=== PATIENT | male | born 1935 | race Caucasian/White ===

== ENCOUNTER → 2019-09-20 | Outpatient (CLI) | payer MEDICARE, OTHER | END | disposition home or self-care (01) | LOC: RAH 09:10 | PROVIDERS: ATTEND Internal Medicine Gastroenterology | DX: K22.4 Dyskinesia of esophagus (principal); K44.9 Diaphragmatic hernia without obstruction or gangrene | CPT/HCPCS: 74240 ==

== ENCOUNTER → 2020-02-13 | Outpatient (CLI) | payer OTHER | END | disposition home or self-care (01) | LOC: RAH 15:34 | PROVIDERS: ATTEND Internal Medicine | DX: I10 Essential (primary) hypertension (principal) | CPT/HCPCS: 71045 ==

== ENCOUNTER → 2020-03-02 | Outpatient (CLI) | payer OTHER | LOC: RAH 09:29 | PROVIDERS: ATTEND Internal Medicine | DX: N28.1 Cyst of kidney, acquired (principal); N18.3 Chronic kidney disease, stage 3 (moderate) | CPT/HCPCS: 76770 ==

== ENCOUNTER → 2024-02-04 | Outpatient (CLI) | payer MEDICARE | END | disposition home or self-care (01) | LOC: SHCH 08:49 | PROVIDERS: ATTEND Internal Medicine Cardiovascular Disease | DX: R42 Dizziness and giddiness (principal); I20.0 Unstable angina; I11.9 Hypertensive heart disease without heart failure; N40.0 Benign prostatic hyperplasia without lower urinary tract symptoms; C61 Malignant neoplasm of prostate; I87.2 Venous insufficiency (chronic) (peripheral); R06.00 Dyspnea, unspecified; R53.83 Other fatigue; R55 Syncope and collapse; Z87.891 Personal history of nicotine dependence | CPT/HCPCS: 93306; 93880 ==

== ENCOUNTER 2025-06-05 07:48 | Observation (INO) | payer MEDICARE ==
[~2025-06-05] VITALS: Ht 182.9 cm; Wt 80.6 kg
--- NOTE | 2025-06-05 08:00 | EKG ---
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
[2025-06-05 08:26] LABS: IMMATURE GRANULOCYTE ABSOLUTE 0.03 K/uL (0-1); NUCLEATED RED BLOOD CELLS 0.0 % (0.0-0.19); PLATELET COUNT (AUTO) 262 K/uL (130-400); RED BLOOD CELL COUNT(AUTO) 4.04 MIL/uL (4.50-6.20); RED CELL DISTRIBUTION WIDTH 14.5 % (11.0-15.5); WHITE BLOOD COUNT (AUTO) 7.4 K/uL (4.8-10.8)
[2025-06-05 08:37] LABS: CREATININE 1.7 mg/dL (0.5-1.3); GLOMERULAR FILTR. RATE CALC 38.0 mL/min (>90); GLUCOSE,RANDOM 115.0 mg/dL (70-105); SODIUM SERUM 141.0 mmol/L (136-145); UREA NITROGEN, BLOOD 30.0 mg/dL (7-18)
[2025-06-05 08:38] LABS: APPEARANCE,URINE CLEAR (CLEAR); GLUCOSE, URINE (UA) NEGATIVE (NEGATIVE); LEUKOCYTE ESTERASE ,URINE NEGATIVE Leu/uL (NEGATIVE); NITRATE,URINE NEGATIVE (NEGATIVE); OCCULT BLOOD,URINE MODERATE (NEGATIVE)
--- NOTE | 2025-06-05 08:39 | HMCIMG ---
EXAM: CR Chest, 2 View. CLINICAL HISTORY: [facility] COMPARISON: None provided. FINDINGS: LUNGS: There is airspace opacity at the right lung base which is likely infectious in etiology. The lungs are otherwise clear. PLEURAL SPACES: No pleural effusion or pneumothorax. MEDIASTINUM: Cardiac size and mediastinal contours within normal limits. BONES: No acute osseous abnormality. IMPRESSION: There is airspace opacity at the right lung base which is likely infectious in etiology. /[place]
[2025-06-05 08:42] LABS: ASPARTATE AMINOTRANSFERASE 15.0 U/L (10-37); CREATINE KINASE, TOTAL 51.0 U/L (21-232); TOTAL PROTEIN, SERUM 7.3 g/dL (6.0-8.3)
[2025-06-05 08:44] LABS: ADD UA MICROSCOPIC YES
--- NOTE | 2025-06-05 09:22 | HMCIMG ---
EXAM: CT Head Without IV contrast. CLINICAL HISTORY: fall TECHNIQUE: Axial computed tomography images of the head/brain without intravenous contrast. COMPARISON: None provided. FINDINGS: BRAIN: No acute bleed or infarct. Chronic ischemic and atrophic changes. VENTRICLES: No hydrocephalus. ORBITS: The orbits are unremarkable. SINUSES AND MASTOIDS: The paranasal sinuses and mastoid air cells are clear. BONES: No fracture. SOFT TISSUES: Unremarkable. IMPRESSION: No acute bleed or infarct. Chronic ischemic and atrophic changes. /[place]
[2025-06-05] MEDS: ZOSYN 3.375GM +NS 50ML IV ONE (10:39)
--- NOTE | 2025-06-05 12:07 | ERN ---
ED Note History of Present Illness Stated Complaint: DIZZINESS Chief Complaint: Dizzy/Light Headed Time Seen by MD: 07:52 Dictation: 89-year-old male presenting to the emergency department with generalized weakness and dizziness also having shortness of breath these end-stage renal disease dialyzes Thursday, last dialyzed on Thursday. Has a history of anemia. Allergies: Coded Allergies: iodine (Unverified Allergy, Unknown, 06/05/25) naproxen (Unverified Allergy, Unknown, 06/05/25) oxycodone (Unverified Adverse Reaction, Unknown, 06/05/25) hallucinations Past Medical History Past Medical History: COPD, Hypotension Surgical History: Other Surgical History Other: HERNIA X 3 Review of System Dictation Constitutional: Negative for fever,chills, and weight loss Eyes: Negative for injury, pain,redness, and discharge ENT: Negative for injury,pain or swelling Cardiovascular: Negative for chest pain, palpitations, and edema Respiratory: per HPI Abdomen/GI: Negative for abdominal pain, nausea, vomiting, diarrhea, and constipation Back: Negative for injury and pain : Negative for injury, bleeding and discharge MS/Extremity: Negative for injury and deformity Skin: Negative for rash, and discoloration Neuro: Per HPI Initial Vital Sign VS Vital Signs Date Time Temp Pulse Resp B/P (MAP) Pulse Ox O2 Delivery O2 Flow Rate FiO2 06/05/25 07:49 88 16 172/70 100 Room Air 0 06/05/25 08:23 97.9 21 Physical Exam Dictation General: awake, alert, NAD Head/Face: Normocephalic, atraumatic Eyes: PERRL, EOMI, vision at baseline ENT: oral cavity clear, TMs clear, no signs of infection Neck: Trachea midline, supple, no nuchal rigidity Cardiovascular: RRR, normal S1/S2, No MRGs, no JVD Respiratory: CTAB, no respiratory distress, No rales or wheezes Abdomen: Soft, non-tender, non-distended, normal bowel sounds, no guarding or rebound. Skin: Warm, dry, normal turgor, no rash MS/Extremity: Pulses equal, no cyanosis, neurovascular intact, FROM Neuro: COAx4, GCS 15, strength 5/5, CN 2-12 intact, normal cerebellar exam, normal gait, Psych: Normal behavior, mood, and affect normal Results (Laboratory/Radiology) Laboratory/Radiology Laboratory Tests Test 06/05/25 08:15 06/05/25 08:24 White Blood Count 7.4 K/uL (4.8-10.8) Red Blood Count 4.04 MIL/uL (4.50-6.20) L Hemoglobin 11.6 g/dL (14.0-18.0) L Hematocrit 35.7 % (42-54) L Mean Corpuscular Volume 88.4 fL (79-99) Mean Corpuscular Hemoglobin 28.7 pg (27.0-33.0) Mean Corpuscular Hemoglobin Concent 32.5 g/dL (32.0-36.0) Red Cell Distribution Width 14.5 % (11.0-15.5) Platelet Count 262 K/uL (130-400) Mean Platelet Volume 9.7 fL (7.5-10.5) Immature Granulocyte % (Auto) 0.4 % (0-1) Neutrophils (%) (Auto) 60.5 % (40.0-77.0) Lymphocytes (%) (Auto) 17.0 % (21.0-51.0) L Monocytes (%) (Auto) 9.2 % (3.0-13.0) Eosinophils (%) (Auto) 12.5 % (0.0-8.0) H Basophils (%) (Auto) 0.4 % (0.0-5.0) Neutrophils # (Auto) 4.5 K/uL (1.8-7.7) Lymphocytes # (Auto) 1.3 K/uL (1.0-4.8) Monocytes # (Auto) 0.7 K/uL (0.1-1.0) Eosinophils # (Auto) 0.92 K/uL (0.00-0.70) H Basophils # (Auto) 0.03 K/uL (0.00-0.20) Absolute Immature Granulocyte (auto 0.03 K/uL (0-1) Nucleated Red Blood Cells 0.0 % (0.0-0.19) Sodium Level 141 mmol/L (136-145) Potassium Level 4.2 mmol/L (3.5-5.1) Chloride Level 103 mmol/L (101-111) Carbon Dioxide Level 25 mmol/L (21-32) Blood Urea Nitrogen 30 mg/dL (7-18) H Creatinine 1.7 mg/dL (0.5-1.3) H Glomerular Filtration Rate Calc 38 mL/min (>90) Random Glucose 115 mg/dL (70-105) H Lactic Acid Level 1.8 mmol/L (0.8-2.5) Total Calcium 9.4 mg/dL (8.5-10.1) Total Bilirubin 1.4 mg/dL (0.2-1.0) H Direct Bilirubin 0.3 mg/dL (0.0-0.3) Aspartate Amino Transf (AST/SGOT) 15 U/L (10-37) Alanine Aminotransferase (ALT/SGPT) 19 U/L (12-78) Alkaline Phosphatase 100 U/L (50-136) Total Creatine Kinase 51 U/L (21-232) Troponin I High Sensitivity 13 ng/L (4-75) Total Protein 7.3 g/dL (6.0-8.3) Albumin 3.6 g/dL (3.5-5.0) Urine Color LIGHT-YELLOW (YELLOW) Urine Appearance CLEAR (CLEAR) Urine pH 7.5 (5.0-8.0) Urine Specific [place] 1.009 (1.001-1.031) Urine Protein NEGATIVE mg/dL (NEGATIVE) Urine Glucose (UA) NEGATIVE mg/dL (NEGATIVE) Urine Ketones NEGATIVE mg/dL (NEGATIVE) Urine Occult Blood MODERATE (NEGATIVE) H Urine Nitrate NEGATIVE (NEGATIVE) Urine Bilirubin NEGATIVE mg/dL (NEGATIVE) Urine Urobilinogen 0.2 mg/dL (0.2-1.0) Urine Leukocyte Esterase NEGATIVE Shayne/uL Urine RBC 26-50 /HPF (0-1) H Urine WBC 2-5 /HPF (0-1) H Urine Bacteria None Seen /HPF (None Seen) Labs Reviewed?: Yes EKG Comment: HR 74, NSR, normal intervals, no STEMI ED Course ED Course Orders Procedure Category Date Status Time 12 Lead Ekg Tracing- EKG 06/05/25 Complete Technical 07:52 Blood Cult GURDEEP 06/05/25 In Process 07:52 Basic Metabolic Panel LAB 06/05/25 Complete 07:52 Cbc With Differential LAB 06/05/25 Complete 07:52 Hepatic Function Panel LAB 06/05/25 Complete 07:52 Creatine Kinase, Total LAB 06/05/25 Complete 07:52 Lactic Acid LAB 06/05/25 Complete 07:52 Troponin I High LAB 06/05/25 Complete Sensitivity 07:52 Urinalysis Profile LAB 06/05/25 Complete 07:52 Chest 1vw RAD 06/05/25 Resulted 07:52 Ct Head/Brain W/O CT 06/05/25 Resulted Contrast 07:52 Zosyn 3.375gm+Ns 50ml PHA 06/05/25 Complete (Zosyn 3.375gm+Ns 10:00 Current Medications Medications (Trade) Dose Ordered Sig/Aramis Route PRN Reason Start Time Stop Time Status Last Admin Dose Admin Piperacillin Sod/ Tazobactam Sod (Zosyn 3.375gm+NS 50ml) 3.375 gm ONCE ONCE IV 06/05/25 10:00 06/05/25 10:01 DC 06/05/25 10:39 Vital Signs Date Time Temp Pulse Resp B/P (MAP) Pulse Ox O2 Delivery O2 Flow Rate FiO2 06/05/25 08:23 97.9 72 15 135/77 96 Room Air* 0 21 06/05/25 07:49 88 16 172/70 100 Room Air 0 Medical Decision Making MDM MDM: Differential diagnosis: Rationale: Tests considered and ordered secondary to shared decision making include: labs, ECG and radiology Previous outside records reviewed: Old ER visits. Risk of complication and/or morbidity or mortality of patient management: None Medications-Per medication reconciliation Need for hospitalization: Patient does meet criteria for hospitalization. Need for emergency major/minor surgery: No There are no social concerns with this patient. Prescription drug management Prescriptions will include symptomatic care Patient's prior external medical records from other ER visits were reviewed by me as indicated. Prior testing and results from previous visits were reviewed. Prior tests were taken into account with medical decision making and resource utilization, independent historian/historians were used to obtain complete medical history. I independently interpreted the test that were performed, results were reviewed by me and considered findings on radiology if ordered. Medical management and examination interpretation discussions were had by me with other qualified healthcare professionals as indicated for the patient's care. Critical Care Note Critical Time: other Comment(s) Total critical care time was 33 minutes. Excluding time for procedures. Management of critically ill patient with concern for acute decompensation. Management included interpretation of laboratory values and imaging, hemodynamics, time for consultation with consultants and admitting physician. DX & DISP Disposition: Inpatient Departure Impression: Primary Impression: Severe anemia Additional Impression: ESRD needing dialysis Condition: Stable Referrals: MAC LING MD (PCP) SERGE LENTZ MD Jun 05, 2025 12:07
--- NOTE | 2025-06-05 12:30 | ERN ---
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 Allergies: Coded Allergies: iodine (Unverified Allergy, Unknown, 06/05/25) naproxen (Unverified Allergy, Unknown, 06/05/25) oxycodone (Unverified Adverse Reaction, Unknown, 06/05/25) hallucinations Past Medical History Past Medical History: COPD, Hypotension Surgical History: Other Surgical History Other: HERNIA X 3 Review of System Dictation Constitutional: Negative for fever,chills, and weight loss Eyes: Negative for injury, pain,redness, and discharge ENT: Negative for injury,pain or swelling Cardiovascular: Per HPI Respiratory: Negative for shortness of breath, cough, and wheezing, Abdomen/GI: Negative for abdominal pain, nausea, vomiting, diarrhea, and constipation Back: Negative for injury and pain : Negative for injury, bleeding and discharge MS/Extremity: Negative for injury and deformity Skin: Negative for rash, and discoloration Neuro: Per HPI Initial Vital Sign VS Vital Signs Date Time Temp Pulse Resp B/P (MAP) Pulse Ox O2 Delivery O2 Flow Rate FiO2 06/05/25 07:49 88 16 172/70 100 Room Air 0 06/05/25 08:23 97.9 21 Physical Exam Dictation General: awake, alert, appears chronically ill Head/Face: Normocephalic, atraumatic Eyes: PERRL, EOMI, vision at baseline ENT: oral cavity clear, TMs clear, no signs of infection Neck: Trachea midline, supple, no nuchal rigidity Cardiovascular: RRR, normal S1/S2, No MRGs, no JVD Respiratory: CTAB, no respiratory distress, No rales or wheezes Abdomen: Soft, non-tender, non-distended, normal bowel sounds, no guarding or rebound. Skin: Warm, dry, normal turgor, no rash MS/Extremity: Pulses equal, no cyanosis, neurovascular intact, FROM Neuro: COAx4, GCS 15, strength 5/5, CN 2-12 intact, normal cerebellar exam, normal gait, Psych: Normal behavior, mood, and affect normal Results (Laboratory/Radiology) Laboratory/Radiology Laboratory Tests Test 06/05/25 08:15 06/05/25 08:24 White Blood Count 7.4 K/uL (4.8-10.8) Red Blood Count 4.04 MIL/uL (4.50-6.20) L Hemoglobin 11.6 g/dL (14.0-18.0) L Hematocrit 35.7 % (42-54) L Mean Corpuscular Volume 88.4 fL (79-99) Mean Corpuscular Hemoglobin 28.7 pg (27.0-33.0) Mean Corpuscular Hemoglobin Concent 32.5 g/dL (32.0-36.0) Red Cell Distribution Width 14.5 % (11.0-15.5) Platelet Count 262 K/uL (130-400) Mean Platelet Volume 9.7 fL (7.5-10.5) Immature Granulocyte % (Auto) 0.4 % (0-1) Neutrophils (%) (Auto) 60.5 % (40.0-77.0) Lymphocytes (%) (Auto) 17.0 % (21.0-51.0) L Monocytes (%) (Auto) 9.2 % (3.0-13.0) Eosinophils (%) (Auto) 12.5 % (0.0-8.0) H Basophils (%) (Auto) 0.4 % (0.0-5.0) Neutrophils # (Auto) 4.5 K/uL (1.8-7.7) Lymphocytes # (Auto) 1.3 K/uL (1.0-4.8) Monocytes # (Auto) 0.7 K/uL (0.1-1.0) Eosinophils # (Auto) 0.92 K/uL (0.00-0.70) H Basophils # (Auto) 0.03 K/uL (0.00-0.20) Absolute Immature Granulocyte (auto 0.03 K/uL (0-1) Nucleated Red Blood Cells 0.0 % (0.0-0.19) Sodium Level 141 mmol/L (136-145) Potassium Level 4.2 mmol/L (3.5-5.1) Chloride Level 103 mmol/L (101-111) Carbon Dioxide Level 25 mmol/L (21-32) Blood Urea Nitrogen 30 mg/dL (7-18) H Creatinine 1.7 mg/dL (0.5-1.3) H Glomerular Filtration Rate Calc 38 mL/min (>90) Random Glucose 115 mg/dL (70-105) H Lactic Acid Level 1.8 mmol/L (0.8-2.5) Total Calcium 9.4 mg/dL (8.5-10.1) Total Bilirubin 1.4 mg/dL (0.2-1.0) H Direct Bilirubin 0.3 mg/dL (0.0-0.3) Aspartate Amino Transf (AST/SGOT) 15 U/L (10-37) Alanine Aminotransferase (ALT/SGPT) 19 U/L (12-78) Alkaline Phosphatase 100 U/L (50-136) Total Creatine Kinase 51 U/L (21-232) Troponin I High Sensitivity 13 ng/L (4-75) Total Protein 7.3 g/dL (6.0-8.3) Albumin 3.6 g/dL (3.5-5.0) Urine Color LIGHT-YELLOW (YELLOW) Urine Appearance CLEAR (CLEAR) Urine pH 7.5 (5.0-8.0) Urine Specific [place] 1.009 (1.001-1.031) Urine Protein NEGATIVE mg/dL (NEGATIVE) Urine Glucose (UA) NEGATIVE mg/dL (NEGATIVE) Urine Ketones NEGATIVE mg/dL (NEGATIVE) Urine Occult Blood MODERATE (NEGATIVE) H Urine Nitrate NEGATIVE (NEGATIVE) Urine Bilirubin NEGATIVE mg/dL (NEGATIVE) Urine Urobilinogen 0.2 mg/dL (0.2-1.0) Urine Leukocyte Esterase NEGATIVE Shayne/uL Urine RBC 26-50 /HPF (0-1) H Urine WBC 2-5 /HPF (0-1) H Urine Bacteria None Seen /HPF (None Seen) Labs Reviewed?: Yes EKG Comment: Heart rate 74 normal sinus rhythm normal intervals no STEMI or STEMI equivalent ED Course ED Course Orders Procedure Category Date Status Time 12 Lead Ekg Tracing- EKG 06/05/25 Complete Technical 07:52 Blood Cult GURDEEP 06/05/25 In Process 07:52 Basic Metabolic Panel LAB 06/05/25 Complete 07:52 Cbc With Differential LAB 06/05/25 Complete 07:52 Hepatic Function Panel LAB 06/05/25 Complete 07:52 Creatine Kinase, Total LAB 06/05/25 Complete 07:52 Lactic Acid LAB 06/05/25 Complete 07:52 Troponin I High LAB 06/05/25 Complete Sensitivity 07:52 Urinalysis Profile LAB 06/05/25 Complete 07:52 Chest 1vw RAD 06/05/25 Resulted 07:52 Ct Head/Brain W/O CT 06/05/25 Resulted Contrast 07:52 Zosyn 3.375gm+Ns 50ml PHA 06/05/25 Complete (Zosyn 3.375gm+Ns 10:00 Ns 500ml Bolus PHA 06/05/25 Transmitted 14:30 Current Medications Medications (Trade) Dose Ordered Sig/Aramis Route PRN Reason Start Time Stop Time Status Last Admin Dose Admin Piperacillin Sod/ Tazobactam Sod (Zosyn 3.375gm+NS 50ml) 3.375 gm ONCE ONCE IV 06/05/25 10:00 06/05/25 10:01 DC 06/05/25 10:39 Vital Signs Date Time Temp Pulse Resp B/P (MAP) Pulse Ox O2 Delivery O2 Flow Rate FiO2 06/05/25 12:36 98.6 73 16 124/67 99 Room Air* 0 06/05/25 11:15 97.9 76 16 135/77 100 Room Air* 0 06/05/25 09:30 97.9 76 15 139/82 100 Room Air* 0 06/05/25 08:23 97.9 72 15 135/77 96 Room Air* 0 06/05/25 07:49 88 16 172/70 100 Room Air 0 Medical Decision Making MDM MDM: Differential diagnosis: Rationale: Tests considered and ordered secondary to shared decision making include: labs, ECG and radiology Previous outside records reviewed: Old ER visits. Risk of complication and/or morbidity or mortality of patient management: None Medications-Per medication reconciliation Need for hospitalization: Patient does meet criteria for hospitalization. Need for emergency major/minor surgery: No There are no social concerns with this patient. Prescription drug management Prescriptions will include symptomatic care Patient's prior external medical records from other ER visits were reviewed by me as indicated. Prior testing and results from previous visits were reviewed. Prior tests were taken into account with medical decision making and resource utilization, independent historian/historians were used to obtain complete medical history. I independently interpreted the test that were performed, results were reviewed by me and considered findings on radiology if ordered. Medical management and examination interpretation discussions were had by me with other qualified healthcare professionals as indicated for the patient's care. 89-year-old recent postop patient generalized weakness syncope concern for right lower lobe pneumonia admitting for further care and evaluation. DX & DISP Disposition: Inpatient Departure Impression: Primary Impression: Syncope Additional Impressions: Acute dehydration, Prerenal azotemia Condition: Stable Referrals: MAC LING MD (PCP) SERGE LENTZ MD Jun 05, 2025 12:30
[2025-06-05] MEDS ORDERED: 0.9% NACL 500ML IV.SOLN 500 ML IV ONE (14:30)
--- NOTE | 2025-06-05 14:42 | NUR ---
SPOKE WITH DR JI NO NEW ORDERS AT THIS TIME
[2025-06-05] MEDS: 1/2 NS 1000ML 1,000 ML IV SCH (14:53)
--- NOTE | 2025-06-05 15:54 | NUR ---
DCP: HOME Pt currently lives with his Ceci Mcdonald [phone] who was at bedside. 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 Since then he has had [facility] home health assist him. He has PT 3x a week and has a nurse avaliable when he needs it. Pt is able to complete ADLs and has a walker he has been using since the surgery. PCP is Dr. Ward and uses [facility] for any RX needs. At [place] pt will want to go home and family can assist with transportation. Addendum: 06/05/25 at 1559 by NUNU EDWARDS Amended: Links added.
--- NOTE | 2025-06-05 16:00 | NUR ---
SPOUSE TO BRING MEDICATIONS
--- NOTE | 2025-06-05 16:30 | NUR ---
APPLIED BEHAVIOR SPECIALIST FROM CARDILOGY AT BEDSIDE
[2025-06-05 18:41] VITALS: BP 135/77; PULSE 82; RESP 18; TEMP 98.3
[2025-06-05 20:00] VITALS: BP 100/60; PULSE 72; RESP 20; TEMP 97.8
[2025-06-05 20:01] VITALS: BP 83/47; PULSE 74; RESP 20; TEMP 97.8
[2025-06-05 20:02] VITALS: BP 73/32; PULSE 74; RESP 20; TEMP 97.8
--- NOTE | 2025-06-05 20:22 | CONS ---
cardiology consult hpi This is an 89-year-old male past medical history of hypertension, former smoker, history of COPD, recent atrial myxoma removal in [place] May 15, 2025 presented to the ED for syncopal episode. As per patient has been having more frequent episodes of syncope/dizziness. He states it happens more whenever he goes from a sitting to standing position. She also mentions this has been going on for years however he has been having more frequent episodes. Past medical history As mentioned above Surgical history Noncontributory Social history Former smoker ROS General: No malaise or fever. Neurological: No fainting episodes or seizures. HEENT: No nasal congestion or nasal secretion. Cardiac: No chest pain or palpitations.+ syncope Gastrointestinal: No vomiting or diarrhea. Skin: No rashes or lesions. Hematological: No bruises or bleeding. Musculoskeletal: No joint pains or arthralgias. Psychiatric: No depression or panic attacks. Vitals/Labs Physical Exam General: awake, alert, appears chronically ill Head/Face: Normocephalic Eyes: PERRL, EOMI, vision at baseline ENT: oral cavity clear, TMs clear, no signs of infection Neck: Trachea midline, supple, no nuchal rigidity Cardiovascular: RRR, normal S1/S2, No MRGs, no JVD Respiratory: CTAB, no respiratory distress, No rales or wheezes Abdomen: Soft, non-tender, non-distended, normal bowel sounds, no guarding or rebound. Skin: Warm, dry, normal turgor, no rash MS/Extremity: Pulses equal, no cyanosis, neurovascular intact, FROM Neuro: COAx4, GCS 15, strength 5/5, CN 2-12 intact, normal cerebellar exam, normal gait, Vital Signs Date Time Temp Pulse Resp B/P (MAP) Pulse Ox O2 Delivery O2 Flow Rate FiO2 06/05/25 18:41 98.2 82 18 135/77 96 Room Air 06/05/25 17:50 0 21 Laboratory Tests 06/05/25 08:15 Allergies: Coded Allergies: iodine (Unverified Allergy, Unknown, 06/05/25) naproxen (Unverified Allergy, Unknown, 06/05/25) oxycodone (Unverified Adverse Reaction, Unknown, 06/05/25) hallucinations Medications Current Medications Piperacillin Sod/ Tazobactam Sod 3.375 gm ONCE ONCE IV Last administered on 06/05/25at 10:39; Start 06/05/25 at 10:00; Stop 06/05/25 at 10:01; Status DC Sodium Chloride 500 ml @ 0 mls/hr ONCE ONCE IV; Start 06/05/25 at 14:30; Stop 06/05/25 at 14:11; Status DC Sodium Chloride 1,000 ml @ 125 mls/hr Q8H IV Last administered on 06/05/25at 14:53; Start 06/05/25 at 14:30; Stop 07/05/25 at 14:29 ASSESSMENT: 1. Syncope suspect vasovagal 2. 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 History of hypertension 4. History of normal EF From a cardiovascular standpoint suspect the patient's syncope is vasovagal in etiology. we will consult EP cardiology for a loop recorder implantation as patient has frequent falls so we will need to rule out any episodes of bradycardia or any blocks. We also do an echocardiogram to assess patient's EF, orthostatic blood pressure checks. As well as a carotid ultrasound to rule out any cardiac or stenosis OMI SOLORZANO PAC Jun 05, 2025 20:22
[2025-06-05 20:30] VITALS: O2SAT 94
[2025-06-06] VITALS (9 sets, daily range): BP systolic 94–151; BP diastolic 43–79; PULSE 62–71; RESP 16–20; TEMP 97.6–98.4; O2SAT 97–98
[2025-06-06 03:53] LABS: IMMATURE GRANULOCYTE ABSOLUTE 0.03 K/uL (0-1); NUCLEATED RED BLOOD CELLS 0.0 % (0.0-0.19); PLATELET COUNT (AUTO) 222 K/uL (130-400); RED BLOOD CELL COUNT(AUTO) 3.66 MIL/uL (4.50-6.20); RED CELL DISTRIBUTION WIDTH 14.7 % (11.0-15.5); WHITE BLOOD COUNT (AUTO) 7.2 K/uL (4.8-10.8)
[2025-06-06 04:10] LABS: ASPARTATE AMINOTRANSFERASE 15.0 U/L (10-37); CREATININE 1.4 mg/dL (0.5-1.3); GLOMERULAR FILTR. RATE CALC 48.0 mL/min (>90); GLUCOSE,RANDOM 117.0 mg/dL (70-105); SODIUM SERUM 143.0 mmol/L (136-145); TOTAL PROTEIN, SERUM 6.6 g/dL (6.0-8.3); UREA NITROGEN, BLOOD 30.0 mg/dL (7-18)
--- NOTE | 2025-06-06 07:24 | HMCIMG ---
EXAMINATION: DUPLEX ULTRASOUND EXAMINATION OF THE BILATERAL CAROTID AND VERTEBRAL ARTERIES. CLINICAL HISTORY: Syncope. COMPARISON: Carotid Doppler dated 02/03/2025. TECHNIQUE: Real-time ultrasound scan of the bilateral carotid and vertebral arteries, 2-D grayscale, with color Doppler flow and spectral waveform analysis. FINDINGS: Color and spectral Doppler interrogation of the carotid vessels on the right demonstrate peak systolic velocities as follows: CCA: 65 cm/s. Bulb: 54 cm/s. ECA: 81 cm/s. ICA (Proximal, mid, and distal): 60, 56, and 66 cm/s respectively. Vertebral artery demonstrates antegrade flow: 48 cm/s. Right ICA/CCA ratio: 1.0 Peak systolic velocities on the left are as follows: CCA: 79 cm/s. Bulb: 61 cm/s. ECA: 117 cm/s. ICA (Proximal, mid, and distal): 67, 61, and 61 cm/s respectively. Vertebral artery demonstrates antegrade flow: 47 cm/s. Left ICA/CCA ratio: 0.9 Both the common carotid arteries and their branches reveal mild intimal thickening. IMPRESSION: Mild intimal thickening in the bilateral carotid arteries and their branches. There is no significant stenosis or flow limiting lesions. No significant interval change. /[place]
--- NOTE | 2025-06-06 14:52 | NUR ---
DR. BAEZ THIS CM LEFT MESSAGE WITH DR. BAEZ TO REMIND OF CONSULT.
--- NOTE | 2025-06-06 16:09 | PN ---
HPI pt was seen and examined today he states he is feeling better Vitals/Labs PE General: awake, alert, appears chronically ill Head/Face: Normocephalic Eyes: PERRL, EOMI, vision at baseline ENT: oral cavity clear, TMs clear, no signs of infection Neck: Trachea midline, supple, no nuchal rigidity Cardiovascular: RRR, normal S1/S2, No MRGs, no JVD Respiratory: CTAB, no respiratory distress, No rales or wheezes Abdomen: Soft, non-tender, non-distended, normal bowel sounds, no guarding or rebound. Skin: Warm, dry, normal turgor, no rash MS/Extremity: Pulses equal, no cyanosis, neurovascular intact, FROM Neuro: COAx4, GCS 15, strength 5/5, CN 2-12 intact, normal cerebellar exam, normal gait, Vital Signs Date Time Temp Pulse Resp B/P (MAP) Pulse Ox O2 Delivery O2 Flow Rate FiO2 06/06/25 11:11 67 123/69 97 Room Air 06/06/25 11:05 98.1 16 06/06/25 08:23 0 21 Laboratory Tests 06/06/25 03:42 Medications Current Medications Piperacillin Sod/ Tazobactam Sod 3.375 gm ONCE ONCE IV Last administered on 06/05/25at 10:39; Start 06/05/25 at 10:00; Stop 06/05/25 at 10:01; Status DC Sodium Chloride 500 ml @ 0 mls/hr ONCE ONCE IV; Start 06/05/25 at 14:30; Stop 06/05/25 at 14:11; Status DC Sodium Chloride 1,000 ml @ 125 mls/hr Q8H IV Last administered on 06/05/25at 14:53; Start 06/05/25 at 14:30; Stop 07/05/25 at 14:29 ASSESSMENT: 1. Syncope suspect vasovagal 2. 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 History of hypertension 4. History of normal EF From a cardiovascular standpoint suspect the patient's syncope is vasovagal in etiology. we will consult EP cardiology for a loop recorder implantation we appreciate recommendations no indication for cadx workup up - he underwent a LHC 01/2025 shows non obstructive cadx echo ef is normal , he is s/p la myxoma resection i have instructed pt to stay well hydrated and we will order compression stocking for him as well OMI SOLORZANO PAC Jun 06, 2025 16:09
[2025-06-06] MEDS ORDERED: FLUT1BLS3 IH (20:01)
--- NOTE | 2025-06-06 21:46 | PN ---
PROGRESS NOTE PROGRESS NOTE DATE OF PROGRESS NOTE: 06/06/25 SUBJECTIVE: No new complaints feels better VITAL SIGNS Vital Signs Date Time Temp Pulse Resp B/P (MAP) Pulse Ox O2 Delivery O2 Flow Rate FiO2 06/06/25 20:00 98.2 71 20 94/43 97 Room Air 06/06/25 08:23 0 21 PHYSICAL EXAM: General: awake, alert, appears chronically ill Head/Face: Normocephalic Eyes: PERRL, EOMI, vision at baseline ENT: oral cavity clear, TMs clear, no signs of infection Neck: Trachea midline, supple, no nuchal rigidity Cardiovascular: RRR, normal S1/S2, No MRGs, no JVD Respiratory: CTAB, no respiratory distress, No rales or wheezes Abdomen: Soft, non-tender, non-distended, normal bowel sounds, no guarding or rebound. Skin: Warm, dry, normal turgor, no rash MS/Extremity: Pulses equal, no cyanosis, neurovascular intact, FROM Neuro: COAx4, GCS 15, strength 5/5, CN 2-12 intact, normal cerebellar exam, normal gait, LABORATORY: Laboratory Result(s) Test 06/06/25 03:42 White Blood Count 7.2 K/uL (4.8-10.8) Red Blood Count 3.66 MIL/uL (4.50-6.20) Hemoglobin 10.4 g/dL (14.0-18.0) Hematocrit 32.8 % (42-54) Mean Corpuscular Volume 89.6 fL (79-99) Mean Corpuscular Hemoglobin 28.4 pg (27.0-33.0) Mean Corpuscular Hemoglobin Concent 31.7 g/dL (32.0-36.0) Red Cell Distribution Width 14.7 % (11.0-15.5) Platelet Count 222 K/uL (130-400) Mean Platelet Volume 9.9 fL (7.5-10.5) Immature Granulocyte % (Auto) 0.4 % (0-1) Neutrophils (%) (Auto) 52.7 % (40.0-77.0) Lymphocytes (%) (Auto) 23.5 % (21.0-51.0) Monocytes (%) (Auto) 10.1 % (3.0-13.0) Eosinophils (%) (Auto) 13.0 % (0.0-8.0) Basophils (%) (Auto) 0.3 % (0.0-5.0) Neutrophils # (Auto) 3.8 K/uL (1.8-7.7) Lymphocytes # (Auto) 1.7 K/uL (1.0-4.8) Monocytes # (Auto) 0.7 K/uL (0.1-1.0) Eosinophils # (Auto) 0.94 K/uL (0.00-0.70) Basophils # (Auto) 0.02 K/uL (0.00-0.20) Absolute Immature Granulocyte (auto 0.03 K/uL (0-1) Nucleated Red Blood Cells 0.0 % (0.0-0.19) Sodium Level 143 mmol/L (136-145) Potassium Level 5.0 mmol/L (3.5-5.1) Chloride Level 106 mmol/L (101-111) Carbon Dioxide Level 29 mmol/L (21-32) Blood Urea Nitrogen 30 mg/dL (7-18) Creatinine 1.4 mg/dL (0.5-1.3) Glomerular Filtration Rate Calc 48 mL/min (>90) Random Glucose 117 mg/dL (70-105) Total Calcium 9.0 mg/dL (8.5-10.1) Total Bilirubin 1.0 mg/dL (0.2-1.0) Aspartate Amino Transf (AST/SGOT) 15 U/L (10-37) Alanine Aminotransferase (ALT/SGPT) 15 U/L (12-78) Alkaline Phosphatase 84 U/L (50-136) Total Protein 6.6 g/dL (6.0-8.3) Albumin 3.1 g/dL (3.5-5.0) INPATIENT MEDS: Current Medications Medications Dose Ordered Sig/Aramis Start Time Stop Time Status Last Admin Sodium Chloride 1,000 ml @ 125 mls/hr Q8H 06/05/25 14:30 07/05/25 14:29 06/05/25 14:53 PROBLEM LIST: (1) Acute dehydration ICD Code: E86.0 - Dehydration (2) Syncope ICD Code: R55 - Syncope and collapse PLAN: Hydrate observed Orthostatic hypotension there is persistent supportive treatment use midodrine and other measures follow up with the loop recorder as recommended by Cardiology Acute kidney injury improving Physical therapy to evaluated and discharge planning MAC LING MD Jun 06, 2025 21:46
--- NOTE | 2025-06-06 21:46 | HP ---
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 presents with an episode of syncope is being admitted for evaluation and also noted to have elevated creatinine suggesting dehydration ALLERGIES: Coded Allergies: iodine (Unverified Allergy, Unknown, 06/05/25) naproxen (Unverified Allergy, Unknown, 06/05/25) oxycodone (Unverified Adverse Reaction, Unknown, 06/05/25) hallucinations HOME MEDS: Reported Medications Fluticasone/Umeclidin/Vilanter (Trelegy Ellipta 100-62.5-25) 100-62.5 Blst.w.dev, 1 PUFF IH DAILY for 30 Days, #1 EACH 0 Refills 06/06/25 INPATIENT MEDS: Current Medications Medications Dose Ordered Sig/Aramis Start Time Stop Time Status Last Admin Sodium Chloride 1,000 ml @ 125 mls/hr Q8H 06/05/25 14:30 07/05/25 14:29 06/05/25 14:53 VITAL SIGNS Vital Signs Date Time Temp Pulse Resp B/P (MAP) Pulse Ox O2 Delivery O2 Flow Rate FiO2 06/06/25 20:00 98.2 71 20 94/43 97 Room Air 06/06/25 17:18 98.2 62 16 138/74 97 Room Air 06/06/25 11:11 67 123/69 97 Room Air 06/06/25 11:08 68 131/76 97 Room Air 06/06/25 11:05 98.1 67 16 130/66 97 Room Air 06/06/25 08:23 98 Room Air* 0 21 06/06/25 08:16 98.4 69 20 133/77 98 Room Air 06/06/25 04:00 97.9 66 20 151/79 96 Room Air 06/06/25 00:00 97.5 64 20 111/60 94 Room Air REVIEW OF SYSTEMS 10 review of system negative other than stated above PHYSICAL EXAM General: awake, alert, appears chronically ill Head/Face: Normocephalic Eyes: PERRL, EOMI, vision at baseline ENT: oral cavity clear, TMs clear, no signs of infection Neck: Trachea midline, supple, no nuchal rigidity Cardiovascular: RRR, normal S1/S2, No MRGs, no JVD Respiratory: CTAB, no respiratory distress, No rales or wheezes Abdomen: Soft, non-tender, non-distended, normal bowel sounds, no guarding or rebound. Skin: Warm, dry, normal turgor, no rash MS/Extremity: Pulses equal, no cyanosis, neurovascular intact, FROM Neuro: COAx4, GCS 15, strength 5/5, CN 2-12 intact, normal cerebellar exam, normal gait, LABORATORY RESULTS Laboratory Tests 06/05/25 08:15: White Blood Count 7.4, Red Blood Count 4.04, Hemoglobin 11.6, Hematocrit 35.7, Mean Corpuscular Volume 88.4, Mean Corpuscular Hemoglobin 28.7, Mean Corpuscular Hemoglobin Concent 32.5, Red Cell Distribution Width 14.5, Platelet Count 262, Mean Platelet Volume 9.7, Immature Granulocyte % (Auto) 0.4, Neutrophils (%) (Auto) 60.5, Lymphocytes (%) (Auto) 17.0, Monocytes (%) (Auto) 9.2, Eosinophils (%) (Auto) 12.5, Basophils (%) (Auto) 0.4, Neutrophils # (Auto) 4.5, Lymphocytes # (Auto) 1.3, Monocytes # (Auto) 0.7, Eosinophils # (Auto) 0.92, Basophils # (Auto) 0.03, Absolute Immature Granulocyte (auto 0.03, Nucleated Red Blood Cells 0.0, Sodium Level 141, Potassium Level 4.2, Chloride Level 103, Carbon Dioxide Level 25, Blood Urea Nitrogen 30, Creatinine 1.7, Glomerular Filtration Rate Calc 38, Random Glucose 115, Lactic Acid Level 1.8, Total Calcium 9.4, Total Bilirubin 1.4, Direct Bilirubin 0.3, Aspartate Amino Transf (AST/SGOT) 15, Alanine Aminotransferase (ALT/SGPT) 19, Alkaline Phosphatase 100, Total Creatine Kinase 51, Troponin I High Sensitivity 13, Total Protein 7.3, Albumin 3.6 06/05/25 08:24: Urine Color LIGHT-YELLOW, Urine Appearance CLEAR, Urine pH 7.5, Urine Specific [place] 1.009, Urine Protein NEGATIVE, Urine Glucose (UA) NEGATIVE, Urine Ketones NEGATIVE, Urine Occult Blood MODERATE, Urine Nitrate NEGATIVE, Urine Bilirubin NEGATIVE, Urine Urobilinogen 0.2, Urine Leukocyte Esterase NEGATIVE, Urine RBC 26-50, Urine WBC 2-5, Urine Bacteria None Seen 06/06/25 03:42: White Blood Count 7.2, Red Blood Count 3.66, Hemoglobin 10.4, Hematocrit 32.8, Mean Corpuscular Volume 89.6, Mean Corpuscular Hemoglobin 28.4, Mean Corpuscular Hemoglobin Concent 31.7, Red Cell Distribution Width 14.7, Platelet Count 222, Mean Platelet Volume 9.9, Immature Granulocyte % (Auto) 0.4, Neutrophils (%) (Auto) 52.7, Lymphocytes (%) (Auto) 23.5, Monocytes (%) (Auto) 10.1, Eosinophils (%) (Auto) 13.0, Basophils (%) (Auto) 0.3, Neutrophils # (Auto) 3.8, Lymphocytes # (Auto) 1.7, Monocytes # (Auto) 0.7, Eosinophils # (Auto) 0.94, Basophils # (Auto) 0.02, Absolute Immature Granulocyte (auto 0.03, Nucleated Red Blood Cells 0.0, Sodium Level 143, Potassium Level 5.0, Chloride Level 106, Carbon Dioxide Level 29, Blood Urea Nitrogen 30, Creatinine 1.4, Glomerular Filtration Rate Calc 48, Random Glucose 117, Total Calcium 9.0, Total Bilirubin 1.0, Aspartate Amino Transf (AST/SGOT) 15, Alanine Aminotransferase (ALT/SGPT) 15, Alkaline Phosphatase 84, Total Protein 6.6, Albumin 3.1 Microbiology Date/Time Source Procedure Growth Status 06/05/25 08:30 Blood Blood Culture - Preliminary NO GROWTH AFTER 24 HOURS Resulted 06/05/25 08:15 Blood Blood Culture - Preliminary NO GROWTH AFTER 24 HOURS Resulted PROBLEM LIST: (1) Acute dehydration ICD Codes: E86.0 - Dehydration (2) Syncope ICD Codes: R55 - Syncope and collapse PLAN Hydrate observed Orthostatic hypotension there is persistent supportive treatment use midodrine and other measures follow up with the loop recorder as recommended by Cardiology MAC LING MD Jun 06, 2025 21:46
[2025-06-07] VITALS: BP 111/59; PULSE 65; RESP 20; TEMP 97.4
--- NOTE | 2025-06-07 00:47 | HMCSR ---
APPROVED REPORT EXAM: Two-dimensional and M-mode echocardiogram with Doppler and color Doppler. INDICATION ICD: Syncope 2D Dimensions RVDd3.7 cmLVEF(%)62.1 (>50%)LVED Vol(simp.)116.0 mL IVSd0.8 (0.7-1.1cm)FS(%)33 %LVES Vol(simp.)63.0 mL LVDd4.6 (3.8-5.6cm)LA (2D)3.4 (1.6-4.0cm)LVEF(%, simp.)45 % PWd0.9 (0.7-1.1cm)Ao Root(2D)4.0 (2.0-3.7cm)LA ESV INDEX (BP)38.94 mL/m2 LVDs3.1 (2.5-4.0cm)LVOT diam2.3 (1.8-2.4cm) IVC diam1.4 cm Deformation Strain Apical 4-15.5 % Apical 2-15.2 % Apical 3-16.9 % Global Strain-15.9 % M-Mode Dimensions EPSS1.1 cm LA (MM)3.2 (1.6-4.0cm) Ao Root(MM)4.1 (2.0-3.7cm) Aortic Valve AoV Vmax0.9 m/Nithin Peak GR3.0 mmHgLVOT Vmax0.7 m/s AoV VTI0.2 mAo Mean GR1.7 mmHgLVOT VTI0.16 m MARIANA (VMAX)3.56 cm2Al P1/2T768 msAVA (VTI) 3.6 cm2 Mitral Valve MV E Vmax42.2 cm/sDECEL Kent769 ms MV A Vmax59.0 cm/sP 1/2 T81 ms E/A ratio0.7MVA (PHT)2.7 cm2 TDI E/E' Medial5.3E/E' Lateral5.0 Medial E' Peak V8.03 cm/sLateral E' Peak V8.52 cm/s Pulmonary Valve PV Vmax0.9 m/sPV VTI0.21 mPV Mean GR1.8 mmHg PV Peak GR3.3 mmHgPI End Criselda. Harsha 67.2 cm/s Tricuspid Valve TR Vmax2.2 m/sRVSP18.2 mmHg TR Peak GR18.7 mmHg Left Ventricle The left ventricle is normal in size. There is global hypokinesis of the left ventricle. Mild concent molly left ventricular hypertrophy. Left ventricle systolic function is mildly depressed, estimated LVE F is 45 to 50%. Grade 1 diastolic dysfunction. Right Ventricle The right ventricle is normal size. The right ventricular systolic function is normal. Atria The left atrium is mildly dilated, 39 mL/m2. The right atrium size is normal. Aortic Valve Aortic valve is trileaflet. The leaflets are mildly thickened and calcified. Trace aortic regurgitati on. There is no aortic valvular stenosis. Mitral Valve The mitral valve is normal in structure and function. The leaflets are mildly thickened and calcified . Trace mitral regurgitation. There is no mitral valve stenosis. Tricuspid Valve The tricuspid valve is normal in structure and function. Trace tricuspid regurgitation. RVSP is 19 mm Hg. Pulmonic Valve Pulmonic valve is not well visualized. Great Vessels The aortic root is normal in size. The IVC is normal in size and collapses >50% with inspiration. Pericardium No pericardial effusion. Conclusion The left atrium is mildly dilated, 39 mL/m2. Mild concentric left ventricular hypertrophy. There is global hypokinesis of the left ventricle. Left ventricle systolic function is mildly depressed, estimated LVEF is 45 to 50%. Grade 1 diastolic dysfunction. Trace aortic regurgitation. Trace mitral regurgitation. Trace tricuspid regurgitation. PASP is 22 mmHg. No pericardial effusion.
[2025-06-07 04:00] VITALS: BP 141/75; PULSE 66; RESP 20; TEMP 97.8
--- NOTE | 2025-06-07 06:40 | NUR ---
DR LING AT BEDSIDE PER DR LING PATIENT IS OKAY TO BE DISCHARGED TODAY AFTER LOOP RECORDER PLACEMENT
[2025-06-07 07:50] LABS: INR 0.98 (0.85-1.15)
[2025-06-07 08:00] VITALS: O2SAT 98
--- NOTE | 2025-06-07 09:10 | NUR ---
PROCEDURE PATIENT OFF UNIT FOR LOOP RECORDER IMPLANTATION.
[2025-06-07] MEDS ORDERED: HEParin-NS 1,000 UNIT/500 ML 500 ML IV ONE (09:15)
[2025-06-07] MEDS ORDERED: LIDOCAINE HCL 400MG/20ML VIAL ONE (09:15)
--- NOTE | 2025-06-07 10:00 | NUR ---
PATIENT REPORT PATIENT BACK ON UNIT. LOOP RECORDER IMPLANTATION WITH DR. BAEZ. INCISION TO MIDDLE OF CHEST RIGHT OF LEFT NIPPLE. DRESSING CLEAN DRY AND INTACT. PATIENT STABLE, VITAL SIGNS STABLE. NO SIGNS OF DISTRESS NOTED.
--- NOTE | 2025-06-07 13:20 | NUR ---
PATIENT DISCHARGED PERIPHERAL IV DISCONTINUED. DISCHARGE INSTRUCTIONS GIVEN. PATIENT TO CONTINUE HOME MEDICATIONS. NO NEW MEDICATIONS GIVEN. PATIENT AWARE TO F/U WITH DR. LING IN ONE WEEK, UNABLE TO MAKE APPT OFFICE OUT TO LUNCH UNTIL AFTER 2. PATIENT AWARE TO F/U WITH DR. BAEZ JUNE 19 AT 2PM. ALL QUESTIONS ANSWERED.
--- NOTE | 2025-06-07 22:15 | DS ---
Discharge Summary DIAGNOSE(S): [Vasovagal syncope and prerenal azotemia] HOSPITAL COURSE SUMMARY: [Status post recent atrial myxoma removal with vasovagal syncope prerenal azotemia persistent orthostatic symptoms underwent loop recorder with unremarkable prior workup and is discharged as he has improved and symptoms to be followed as an outpatient] CLOTH FINISHER(S): [] PROCEDURE(S)/TREATMENT(S): [Loop recorder] PROBLEM(S): [] FOLLOW-UP TEST(S): [None] DISCHARGE INSTRUCTIONS: [Follow up in 1-2 days] Home Meds Reported Medications Fluticasone/Umeclidin/Vilanter (Trelegy Ellipta 100-62.5-25) 100-62.5 Blst.w.dev, 1 PUFF IH DAILY for 30 Days, #1 EACH 0 Refills 06/06/25 MAC LING MD Jun 07, 2025 22:15
== END 2025-06-07 13:10 | disposition home or self-care (01) ==
LOC: EDH 07:48 → EDHIP 14:03 → 4AH 18:10
PROVIDERS: ADMIT Internal Medicine; ATTEND Internal Medicine
DX: R55 Syncope and collapse (principal); I49.9 Cardiac arrhythmia, unspecified; D63.1 Anemia in chronic kidney disease; I12.0 Hypertensive chronic kidney disease with stage 5 chronic kidney disease or end stage renal disease; N18.6 End stage renal disease; E86.0 Dehydration; R79.89 Other specified abnormal findings of blood chemistry; D15.1 Benign neoplasm of heart; J44.9 Chronic obstructive pulmonary disease, unspecified; Z88.8 Allergy status to other drugs, medicaments and biological substances; Z87.891 Personal history of nicotine dependence
CPT/HCPCS: 96365; 82550; 80076; 84484; 80048; 85025 ×2; 87040 ×2; 83605; 81001; 36415 ×3; 71045; 70450; 93880; 99291; 93005; 80053; 93306; 93356; 33285; 85610; 85730; G0378 ×47; J2543; A4649; C1764; J3490; J1644